=== PATIENT | male | born 1960 | race Caucasian/White ===

== ENCOUNTER 2018-12-03 09:30 | Outpatient (CLI) | payer BC ==
[2018-12-03 10:31] LABS: BASOPHILS % (AUTO) 0.5 % (0-1); EOSINOPHILS # (AUTO) 0.1 X10'3 (0-0.9); EOSINOPHILS % (AUTO) 1.2 % (0-6); HEMATOCRIT 38.2 % (42.0-52.0); HEMOGLOBIN 12.9 g/dl (14.0-17.9); LYMPHOCYTES # (AUTO) 1.1 X10'3 (1.1-4.8); LYMPHOCYTES % (AUTO) 17.2 % (21-51); MEAN CORPUSCULAR HEMOGLOBIN 28.9 PG (27.0-31.0); MEAN CORPUSCULAR HGB CONC 33.9 g/dL (33.0-36.5); MEAN CORPUSCULAR VOLUME 85.4 FL (78-98); MONOCYTES # (AUTO) 0.7 X10'3 (0-0.9); MONOCYTES % (AUTO) 10.5 % (2-12); NEUTROPHILS # (AUTO) 4.5 X10'3 (1.8-7.7); NEUTROPHILS % (AUTO) 70.6 % (42-75); PLATELET COUNT 341 X10'3 (140-440); RED BLOOD COUNT 4.47 X10'6 (4.70-6.10); RED CELL DISTRIBUTION WIDTH 13.7 % (11.5-14.5); WHITE BLOOD COUNT 6.4 X10'3 (4.5-11.0)
[2018-12-03 10:41] LABS: ALANINE AMINOTRANSFERASE 31 U/L (12-78); ALBUMIN 2.9 G/DL (3.4-5.0); ALBUMIN/GLOBULIN RATIO 0.6 (1.1-1.5); ALKALINE PHOSPHATASE 55 IU/L (46-116); ANION GAP 7 (8-16); ASPARTATE AMINO TRANSFERASE 13 U/L (10-37); BILIRUBIN,TOTAL 0.4 MG/DL (0.1-1.0); BLOOD UREA NITROGEN 15 MG/DL (7-18); C-REACTIVE PROTEIN 9.47 MG/DL (0.0-0.5); CALCIUM 9.8 MG/DL (8.5-10.1); CHLORIDE 101 MMOL/L (99-107); CREATININE 0.94 MG/DL (0.60-1.10); GLUCOSE 118 MG/DL (70-104); POTASSIUM 4.2 MMOL/L (3.5-5.1); SODIUM 136 MMOL/L (135-145); TOTAL CARBON DIOXIDE 28.5 MMOL/L (24-32); TOTAL PROTEIN 7.4 G/DL (6.4-8.2); eGFR 82 ML/MIN
== END 2018-12-03 23:59 | disposition home or self-care (01) ==
LOC: LAB 09:30
PROVIDERS: ATTEND Obstetrics & Gynecology
DX: L02.31 Cutaneous abscess of buttock (principal); K61.1 Rectal abscess
CPT/HCPCS: 36415; 80053; 85025; 86140; 87040

== ENCOUNTER 2019-03-05 10:33 | Outpatient (CLI) | payer BC ==
[~2019-03-05 10:33] MED LIST: AMLO10TA13 PO; CELE-85 PO; OLME1TAB44 PO; OXYC20TA40 PO; OXYM10TA22 PO
[2019-03-05 11:11] LABS: BASOPHILS % (AUTO) 0.7 % (0-1); EOSINOPHILS # (AUTO) 0.1 X10'3 (0-0.9); EOSINOPHILS % (AUTO) 1.8 % (0-6); HEMATOCRIT 39.9 % (42.0-52.0); HEMOGLOBIN 12.8 g/dl (14.0-17.9); LYMPHOCYTES # (AUTO) 1.2 X10'3 (1.1-4.8); LYMPHOCYTES % (AUTO) 23.7 % (21-51); MEAN CORPUSCULAR HEMOGLOBIN 25.6 PG (27.0-31.0); MEAN CORPUSCULAR HGB CONC 32.2 g/dL (33.0-36.5); MEAN CORPUSCULAR VOLUME 79.5 FL (78-98); MEAN PLATELET VOLUME 8.3 FL (7.4-10.4); MONOCYTES # (AUTO) 0.5 X10'3 (0-0.9); MONOCYTES % (AUTO) 11.1 % (2-12); NEUTROPHILS # (AUTO) 3.1 X10'3 (1.8-7.7); NEUTROPHILS % (AUTO) 62.7 % (42-75); PLATELET COUNT 286 X10'3 (140-440); RED BLOOD COUNT 5.02 X10'6 (4.70-6.10); RED CELL DISTRIBUTION WIDTH 15.2 % (11.5-14.5); WHITE BLOOD COUNT 4.9 X10'3 (4.5-11.0)
[2019-03-05 11:24] LABS: ALBUMIN 3.3 G/DL (3.4-5.0); ANION GAP 8 (8-16); BLOOD UREA NITROGEN 13 MG/DL (7-18); BUN/CREATININE RATIO 16.5 (5.4-32.0); CALCIUM 9.8 MG/DL (8.5-10.1); CHLORIDE 100 MMOL/L (99-107); CREATININE 0.79 MG/DL (0.60-1.10); GLUCOSE 99 MG/DL (70-104); POTASSIUM 3.7 MMOL/L (3.5-5.1); SODIUM 136 MMOL/L (135-145); TOTAL CARBON DIOXIDE 28.5 MMOL/L (24-32); eGFR > 90 ML/MIN
== END 2019-03-05 23:59 | disposition home or self-care (01) ==
LOC: LAB 10:33
DX: M67.411 Ganglion, right shoulder (principal); M71.011 Abscess of bursa, right shoulder; I10 Essential (primary) hypertension
CPT/HCPCS: 36415; 80048; 85025; 85651; 87040

== ENCOUNTER 2021-07-04 11:10 | Day surgery (SDC) | payer BC ==
[2021-06-29 11:45] LABS: EOSINOPHILS # (AUTO) 0.1 X10'3 (0-0.9); MONOCYTES # (AUTO) 0.4 X10'3 (0-0.9); RED CELL DISTRIBUTION WIDTH 14.1 % (11.5-14.5)
[2021-06-29 11:47] LABS: BASOPHILS % (AUTO) 0.7 % (0-1); EOSINOPHILS % (AUTO) 3.2 % (0-6); LYMPHOCYTES # (AUTO) 1.1 X10'3 (1.1-4.8); LYMPHOCYTES % (AUTO) 29.3 % (21-51); MEAN CORPUSCULAR HEMOGLOBIN 28.8 PG (27.0-31.0); MEAN CORPUSCULAR VOLUME 84.9 FL (78-98); MEAN PLATELET VOLUME 9.2 FL (7.4-10.4); MONOCYTES % (AUTO) 10.6 % (2-12); NEUTROPHILS # (AUTO) 2.1 X10'3 (1.8-7.7); NEUTROPHILS % (AUTO) 56.2 % (42-75); PRE OP HEMATOCRIT 42.1 % (42.0-52.0); PRE OP HEMOGLOBIN 14.3 g/dL (14.0-17.9); PRE OP PLATELET COUNT 185 X10'3 (140-440); RED BLOOD COUNT 4.96 X10'6 (4.70-6.10)
[2021-06-29 12:03] LABS: PRE OP PROTIME 10.4 SECONDS (9.0-12.0)
[2021-06-29 12:09] LABS: ALBUMIN 3.7 G/DL (3.4-5.0); ALBUMIN/GLOBULIN RATIO 0.9 (1.1-1.5); ALKALINE PHOSPHATASE 54 IU/L (46-116); BLOOD UREA NITROGEN 19 MG/DL (7-18); BUN/CREATININE RATIO 21.6 (5.4-32.0); CALCIUM 9.3 MG/DL (8.5-10.1); CHLORIDE 105 MMOL/L (99-107); CREATININE 0.88 MG/DL (0.60-1.10); PRE OP ALT 45 U/L (30-65); PRE OP ANION GAP 8 (8-16); PRE OP AST 31 U/L (10-37); PRE OP BILIRUB, TOTAL 0.6 MG/DL (0.0-1.0); PRE OP GLUCOSE 105 MG/DL (70-104); PRE OP SODIUM 140 MMOL/L (135-145); TOTAL CARBON DIOXIDE 27.5 MMOL/L (24-32); TOTAL PROTEIN 7.7 G/DL (6.4-8.2); eGFR 88 ML/MIN
[2021-07-04] VITALS (19 sets, daily range): BP systolic 99–151; BP diastolic 57–82
[~2021-07-04] VITALS: Ht 193 cm; Wt 101.7 kg
[2021-07-04] MEDS: ringers solution, lacted 1,000 ML IV SCH ×2 (06:33→17:09)
[2021-07-04] MEDS: potassium Cl 20mEq in NS 1,000 ML IV SCH ×2 (11:05→23:37)
--- NOTE | 2021-07-04 11:09 | NUR ---
Received from OR via BED IN STABLE CONDITION , accompanied by Anesthesiologist and [employer] ENGINEER report given by [employer]PER[employer] ENGINEER AND Anesthesiolgist. Addendum: 07/04/21 at 1153 by Briana Richard RN Amended: Links added.
[~2021-07-04 11:10] MED LIST changes: +ACET-1025 PO; +BUPR900F3 PO; +MAGN100T6 PO; +MIDAZolam 1mg/ml 10ml vial ONE; +OLME-11 PO; -OLME1TAB44 PO; +OXYC10TA47 PO; -OXYC20TA40 PO; -OXYM10TA22 PO; +PREG150C46 PO; +ROPIVAcaine 0.5% (5mg/ml) 30ml vial ONE; +acetaminophen 325mg tablet PO PRN; +bisacodyl 10mg suppository rectal RC PRN; +ceFAZolin 2gm in dextrose, iso 50 ML IV ONE; +cloNIDine hcl/PF 100mcg/ml inj ONE; +dexamethasone sod phosphate 4mg/ml inj. ONE; +diphenhydrAMINE 25mg capsule PO PRN; +diphenhydrAMINE 50 mg/ml inj ONE; +famotidine 20mg tablet PO ONE; +fentaNYL/PF 50MCG/1 ML 2ML syringe ONE; +ketorolac trometh. 30mg/ml inj. ONE; +magnesium hydroxide 30ml (MOM) UD suspension PO PRN; +meperidine/PF 25mg/ml syringe IV PRN; +morphine 2 MG/ML inj. syringe IV PRN; +morphine 4 MG/ML inj SYRINge IV PRN; +morphine 4 MG/ML inj SYRINge ONE; +ondansetron/PF 4mg/2ml inj IV PRN; +proCHLORperazine 10 MG/2 ml inj IV PRN; +ringers solution, lacted 1,000 ML IV SCH; +tranexamic acid 1gm/0.7% sal. 100 ML IV ONE; +vancomycin 1,000mg inj ONE; +vancomycin 1,500 MG in NS 300ml IV soln IV ONE
--- NOTE | 2021-07-04 12:19 | NUR ---
PATIENT DISCHARGED FROM PACU IN STABLE CONDITION AFTER REPORT GIVEN TO RN TAKING OVER PATIENTS CARE. PATIENT TRANSFERRED TO ROOM VIA BED WITH RN AND BEVERLEY. Addendum: 07/04/21 at 1244 by Briana Richard RN Amended: Links added.
--- NOTE | 2021-07-04 12:46 | NUR ---
Patient in room . I have received report from KARON Warren and had the opportunity to ask questions and assume patient care. Pt is stable and resting comfortably. Vital signs stable. Assessed surgical dressing, and it is clean, dry and intact. Right foot is elevated above ankle. Skin check done and no areas of concern noted. Pt given ice chips. Pt c/o of pain in left knee and in shoulder. Will address and continue to monitor.
[2021-07-04] MEDS: oxyCODONE IR 5mg (immed. release) tablet PO PRN ×3 (13:00→21:12)
[2021-07-04] MEDS: HYDROmorphone 1 mg/ml syringe IV PRN ×3 (14:34→22:35)
[2021-07-04] MEDS: ceFAZolin/D5W- 1GM premix 50 ML IV SCH ×2 (16:57→23:36)
--- NOTE | 2021-07-04 18:37 | NUR ---
Patient in room [facility]. I have received report from KARON Heath and had the opportunity to ask questions and assume patient care.
--- NOTE | 2021-07-04 18:47 | NUR ---
Student documentation: I have reviewed and agree with all interventions, assessments performed and documented by SN JACKELIN. Student Medication Administration: For this medication-pass time frame, all medication were reviewed, dispensed, administered and documented per hospital policy by SN JACKELIN.
--- NOTE | 2021-07-04 18:47 | NUR ---
Problems reprioritized. Patient report given, questions answered & plan of care reviewed with KARON CEBALLOS.
[2021-07-04] MEDS ORDERED: vancomycin/NS 1 GM ADD-VANTAGE 250 ML IV SCH (20:00)
[2021-07-04] MEDS ORDERED: sennosides 8.6mg tablet PO SCH (21:00)
[2021-07-05] VITALS: BP 117/67
[2021-07-05] MEDS: oxyCODONE IR 5mg (immed. release) tablet PO PRN ×3 (02:45→10:48)
[2021-07-05 04:00] VITALS: BP 113/70
[2021-07-05] MEDS: HYDROmorphone 1 mg/ml syringe IV PRN (04:31)
--- NOTE | 2021-07-05 05:51 | NUR ---
Student documentation: I have reviewed and agree with all interventions, assessments performed and documented by Debra Drew.
--- NOTE | 2021-07-05 06:08 | NUR ---
Problems reprioritized. Patient report given, questions answered & plan of care reviewed with Kumar.
--- NOTE | 2021-07-05 06:08 | NUR ---
Problems reprioritized. Patient report given, questions answered & plan of care reviewed with KARON Heath.
[2021-07-05 06:14] LABS: BASOPHILS % (AUTO) 0.2 % (0-1); EOSINOPHILS % (AUTO) 0.4 % (0-6); HEMATOCRIT 35.5 % (42.0-52.0); HEMOGLOBIN 11.9 g/dl (14.0-17.9); LYMPHOCYTES # (AUTO) 0.9 X10'3 (1.1-4.8); LYMPHOCYTES % (AUTO) 12.6 % (21-51); MEAN CORPUSCULAR HEMOGLOBIN 28.8 PG (27.0-31.0); MEAN CORPUSCULAR HGB CONC 33.6 g/dL (33.0-36.5); MEAN CORPUSCULAR VOLUME 85.6 FL (78-98); MEAN PLATELET VOLUME 9.7 FL (7.4-10.4); MONOCYTES # (AUTO) 0.8 X10'3 (0-0.9); MONOCYTES % (AUTO) 11.4 % (2-12); NEUTROPHILS # (AUTO) 5.2 X10'3 (1.8-7.7); NEUTROPHILS % (AUTO) 75.4 % (42-75); PLATELET COUNT 170 X10'3 (140-440); RED BLOOD COUNT 4.14 X10'6 (4.70-6.10); RED CELL DISTRIBUTION WIDTH 13.9 % (11.5-14.5); WHITE BLOOD COUNT 6.8 X10'3 (4.5-11.0)
--- NOTE | 2021-07-05 06:33 | NUR ---
Patient in room [facility]. I have received report from KARON CEBALLOS and had the opportunity to ask questions and assume patient care.
[2021-07-05 06:43] LABS: ALANINE AMINOTRANSFERASE 28 U/L (12-78); ALBUMIN 2.8 G/DL (3.4-5.0); ALBUMIN/GLOBULIN RATIO 0.8 (1.1-1.5); ALKALINE PHOSPHATASE 44 IU/L (46-116); ANION GAP 8 (8-16); ASPARTATE AMINO TRANSFERASE 18 U/L (10-37); BILIRUBIN,TOTAL 0.7 MG/DL (0.1-1.0); BLOOD UREA NITROGEN 11 MG/DL (7-18); BUN/CREATININE RATIO 13.3 (5.4-32.0); CALCIUM 8.6 MG/DL (8.5-10.1); CHLORIDE 107 MMOL/L (99-107); CREATININE 0.83 MG/DL (0.60-1.10); GLUCOSE 132 MG/DL (70-104); POTASSIUM 4.5 MMOL/L (3.5-5.1); SODIUM 141 MMOL/L (135-145); TOTAL CARBON DIOXIDE 25.9 MMOL/L (24-32); TOTAL PROTEIN 6.1 G/DL (6.4-8.2); eGFR > 90 ML/MIN
[2021-07-05 07:46] VITALS: BP 133/76
[2021-07-05] MEDS ORDERED: HYDROchlorothiazide 25mg tablet PO SCH (08:00)
[2021-07-05] MEDS ORDERED: losartan 50mg tablet PO SCH (08:00)
[2021-07-05] MEDS ORDERED: amLODIPine 5mg tablet PO SCH (08:00)
[2021-07-05 11:17] VITALS: BP 140/66
--- NOTE | 2021-07-05 11:18 | NUR ---
Discussed with patient discharge instructions. Patient verbalizes understanding of teaching and has no questions. Patient states he has already made appointment with Dr. Chaidez for Sunday and has pain meds at home. Patient given x2 powder ice packs. Patient waiting for for transport home.
--- NOTE | 2021-07-05 11:27 | NUR ---
Patient dc'd with all personal belongings. Patient did ask for walker but stated he did not need one because he found one at home. Patient escorted out in wheelchair accompanied by TATYANA Paris.
== END 2021-07-05 11:30 | disposition home or self-care (01) ==
LOC: PAS 11:10 → SUR 3N 12:47 → PAS 07-05 11:30
PROVIDERS: ATTEND Orthopaedic Surgery
DX: M17.12 Unilateral primary osteoarthritis, left knee (principal); I10 Essential (primary) hypertension; I25.2 Old myocardial infarction; G89.18 Other acute postprocedural pain; Z79.01 Long term (current) use of anticoagulants; Z79.899 Other long term (current) drug therapy; Z96.611 Presence of right artificial shoulder joint; Z96.612 Presence of left artificial shoulder joint; Z96.651 Presence of right artificial knee joint; Z98.890 Other specified postprocedural states; Z85.828 Personal history of other malignant neoplasm of skin; Z20.822 Contact with and (suspected) exposure to COVID-19
CPT/HCPCS: 27447; 36415; 64447; 76942; 80053; 82948; 85025; 85610; 85730; 86885; 86900; 86901; 86920; 87081; 93005; 97110; 97116; 97161; 97530; A6223; C1713; C1758; C1776; J0690; J0735; J1100; J1170; J1200; J1885; J2250; J2270; J3010; J3370; J3480; J7040; Q0163; U0003; U0005; Z7506; Z7508; Z7512; A6253; A6449; A6455; A7000; A9272; G0378; J2795; J7120